=== PATIENT | female | born 1995 | race African-American/Black ===

== ENCOUNTER 2022-04-05 03:46 | Emergency (ER) | payer BC ==
[2022-04-05] MEDS ORDERED: Bupivacaine PF 0.5% 30 ML VIAL ONE (04:22)
== END 2022-04-05 05:19 | disposition home or self-care (01) ==
LOC: CSHERS 03:46
DX: S91.111A Laceration without foreign body of right great toe without damage to nail, initial encounter (principal); W22.8XXA Striking against or struck by other objects, initial encounter
CPT/HCPCS: 12002; S0020